=== PATIENT | female | born 1965 | race Hispanic/Latino ===

== ENCOUNTER 2018-10-14 13:00 | Emergency (ER) | payer SELFPAY ==
--- NOTE | 2018-10-14 13:56 | RAD ---
2 views chest. HISTORY: Cough and fever. PA and lateral views of the chest is obtained. The lungs are well aerated. No evidence of active intrathoracic disease seen. No evidence of pneumoni a or pneumothorax seen. IMPRESSION: Normal 2 views chest.
== END 2018-10-14 14:20 | disposition home or self-care (01) ==
LOC: ERS 13:00
DX: J20.9 Acute bronchitis, unspecified (principal); F32.9 Major depressive disorder, single episode, unspecified
CPT/HCPCS: 71046; 87804